=== PATIENT | female | born 1955 | race African-American/Black ===

== ENCOUNTER 2017-03-04 21:51 | Emergency (ER) | payer OTHER ==
[~2017-03-04] VITALS: Ht 157.5 cm; Wt 61.2 kg
--- NOTE | 2017-03-04 22:12 | Emergency Room Report ---
History of Present Illness General Chief Complaint: Pain Source: Patient Present Illness HPI Is a 61-year-old female with no significant past medical history. She presents with chief complaint left hip pain. She said she was in the parking lot and a car when she had severe atraumatic left hip pain. Pain was 10 out of 10. Unable to walk. Localized the left hip. No trauma or fever. It lasted for couple hours and went away. Now pain is a 10. She able to walk in. Never had this problem before the Allergies: Coded Allergies: No Known Allergies (Unverified , 03/04/17) Patient History Past Medical History: see triage record, old chart reviewed Past Surgical History: none Pertinent Family History: none Social History: Denies: smoking Now: No Immunizations: other Reviewed Nursing Documentation: PMH: Agreed, PSxH: Agreed Nursing Documentation-PMH Hx Asthma: Yes Review of Systems Eye: Denies: eye pain, blurred vision ENT: Denies: ear pain, nose congestion, throat swelling Respiratory: Denies: cough, shortness of breath Cardiovascular: Denies: chest pain, palpitations Gastrointestinal: Denies: abdominal pain, diarrhea, nausea, vomiting Musculoskeletal: Reports: joint pain, Denies: back pain Skin: Denies: rash Neurological: Denies: headache, numbness Endocrine: Denies: increased thirst, increased urine Hematologic/Lymphatic: Denies: easy bruising All Other Systems: negative except mentioned in HPI Physical Exam Vital Signs Date Time Temp Pulse Resp B/P (MAP) Pulse Ox O2 Delivery O2 Flow Rate FiO2 03/04/17 22:02 97.3 102 16 150/94 96 Room Air vitals with high blood pressure Sp02 EP Interpretation: reviewed, normal General Appearance: well appearing, no apparent distress, alert Head: normocephalic, atraumatic Eyes: bilateral eye PERRL, bilateral eye EOMI ENT: hearing grossly normal, normal pharynx Neck: full range of motion, supple, no meningismus Respiratory: chest non-tender, lungs clear, normal breath sounds Cardiovascular #1: regular rate, rhythm, no murmur Gastrointestinal: normal bowel sounds, non tender, no mass, no organomegaly, no bruit, non-distended Musculoskeletal: back normal, gait/station normal, normal range of motion Psychiatric: mood/affect normal Skin: warm/dry Medical Decision Making Diagnostic Impression: Primary Impression: Arthralgia of hip, left ER Course Patient presents with left hip pain. She is walking without difficulty. She is sleeping comfortably here. I see no evidence of septic joint, fracture, dislocation or DVT. We'll discharge home. Other X-Ray Diagnostic Results Other X-Ray Diagnostic Results : X-Ray ordered: X-ray left hip # of Views/Limited Vs Complete: 3 View Indication: Pain EP Interpretation: Yes Interpretation: no dislocation, no soft tissue swelling, no fractures Impression: No acute disease Electronically Signed by: Adalberto Umana MD Last Vital Signs Date Time Temp Pulse Resp B/P (MAP) Pulse Ox O2 Delivery O2 Flow Rate FiO2 03/04/17 22:02 97.3 102 16 150/94 96 Room Air Status: improved Disposition: HOME, SELF-CARE Condition: Stable Scripts Ibuprofen* (MOTRIN*) 600 Mg Tablet 600 MG ORAL THREE TIMES A DAY, #30 TAB 0 Refills Prov: ADALBERTO UMANA M.D. 03/04/17 Patient Instructions: PAIN, Uncertain Cause (Acute) Additional Instructions: Followup with your DrSonny in 7 days. Return if symptom worsen. ADALBERTO UMANA M.D. Mar 04, 2017 22:12
[2017-03-04 22:20] VITALS: BP 150/94
[2017-03-04] MEDS ORDERED: IBUPROFEN600 MG ORAL (22:39)
[2017-03-04 22:43] VITALS: BP 150/94
--- NOTE | 2017-03-05 10:29 | Diagnostic Imaging Report ---
Indication: Left hip pain Technique: XRAY HIP 2V LEFT Comparison: None Findings: There is no acute fracture or dislocation. There is degenerative spurring of the left acetabulum and femoral head and neck junction. Soft tissues are grossly unremarkable. Impression: No acute osseous abnormality. Left hip degenerative changes.
== END 2017-03-04 22:45 | disposition home or self-care (01) ==
LOC: EMR 22:40
DX: M25.552 Pain in left hip (principal); J45.909 Unspecified asthma, uncomplicated
CPT/HCPCS: 73502; 99283